=== PATIENT | female | born 1955 | race Native Hawaiian/Other Pacific Islander ===

== ENCOUNTER 2018-06-07 16:16 | Outpatient (CLI) | payer BC ==
[2018-06-07 16:37] LABS: PLATELET COUNT 316 K/uL (152-353)
[2018-06-07 16:52] LABS: POTASSIUM 3.8 mmol/L (3.6-5.2)
== END 2018-06-07 20:30 | disposition home or self-care (01) ==
LOC: LABW 16:16
PROVIDERS: Plastic Surgery
DX: Z01.812 Encounter for preprocedural laboratory examination (principal)
CPT/HCPCS: 36415; 80053; 85027

== ENCOUNTER 2021-11-12 09:24 | Outpatient (CLI) | payer OTHER ==
[2021-11-12 09:51] LABS: PLATELET COUNT 335 K/uL (152-353)
[2021-11-12 10:01] LABS: POTASSIUM 3.7 mmol/L (3.6-5.2)
== END 2021-11-12 18:48 | disposition home or self-care (01) ==
LOC: LABW 09:24
PROVIDERS: ATTEND Nurse Practitioner Family
DX: M06.09 Rheumatoid arthritis without rheumatoid factor, multiple sites (principal)
CPT/HCPCS: 36415; 80053; 85027; 85652; 86140; 86480

== ENCOUNTER 2022-02-07 10:01 | Outpatient (CLI) | payer OTHER ==
[2022-02-07 10:27] LABS: PLATELET COUNT 344 K/uL (152-353)
[2022-02-07 10:58] LABS: POTASSIUM 3.9 mmol/L (3.6-5.2)
== END 2022-02-07 19:18 | disposition home or self-care (01) ==
LOC: LABW 10:01
PROVIDERS: ATTEND Nurse Practitioner Family
DX: M06.09 Rheumatoid arthritis without rheumatoid factor, multiple sites (principal); I10 Essential (primary) hypertension; Z78.0 Asymptomatic menopausal state; E78.49 Other hyperlipidemia; Z79.899 Other long term (current) drug therapy; E28.39 Other primary ovarian failure; M25.551 Pain in right hip
CPT/HCPCS: 36415; 80053; 80061; 82306; 84436; 84443; 85027; 85652; 86140

== ENCOUNTER 2022-05-05 13:32 | Outpatient (CLI) | payer OTHER | END 2022-05-05 19:01 | disposition home or self-care (01) | LOC: RAD 13:32 | PROVIDERS: ATTEND Internal Medicine | DX: R05.3 Chronic cough (principal); R50.9 Fever, unspecified ==

== ENCOUNTER 2022-05-09 08:26 | Outpatient (CLI) | payer OTHER ==
[2022-05-09 08:53] LABS: POTASSIUM 3.6 mmol/L (3.6-5.2)
[2022-05-09 09:04] LABS: PLATELET COUNT 339 K/uL (152-353)
== END 2022-05-09 22:48 | disposition home or self-care (01) ==
LOC: LABW 08:26
PROVIDERS: ATTEND Internal Medicine Rheumatology
DX: M06.09 Rheumatoid arthritis without rheumatoid factor, multiple sites (principal)
CPT/HCPCS: 36415; 80053; 85027; 85652

== ENCOUNTER 2022-08-19 08:01 | Outpatient (CLI) | payer OTHER ==
[2022-08-19 08:17] LABS: PLATELET COUNT 356 K/uL (152-353)
[2022-08-19 08:33] LABS: POTASSIUM 3.9 mmol/L (3.6-5.2)
== END 2022-08-19 18:55 | disposition home or self-care (01) ==
LOC: LABW 08:01
PROVIDERS: ATTEND Nurse Practitioner Family
DX: M06.09 Rheumatoid arthritis without rheumatoid factor, multiple sites (principal)
CPT/HCPCS: 36415; 80053; 85027; 85652; 86140

== ENCOUNTER 2022-10-20 14:23 | Outpatient (CLI) | payer OTHER | END 2022-10-20 21:35 | disposition home or self-care (01) | LOC: RAD 14:23 | PROVIDERS: ATTEND Internal Medicine | DX: R05.3 Chronic cough (principal) ==

== ENCOUNTER 2022-11-12 08:37 | Outpatient (CLI) | payer OTHER ==
[2022-11-12 08:52] LABS: PLATELET COUNT 328 K/uL (152-353)
[2022-11-12 09:04] LABS: POTASSIUM 3.9 mmol/L (3.6-5.2)
== END 2022-11-12 18:58 | disposition home or self-care (01) ==
LOC: LABW 08:37
PROVIDERS: ATTEND Nurse Practitioner Family
DX: M06.09 Rheumatoid arthritis without rheumatoid factor, multiple sites (principal); Z79.899 Other long term (current) drug therapy
CPT/HCPCS: 36415; 80053; 85027; 85652; 86140

== ENCOUNTER 2022-12-17 08:02 | Outpatient (CLI) | payer OTHER ==
[2022-12-17 08:31] LABS: POTASSIUM 3.8 mmol/L (3.6-5.2)
== END 2022-12-17 19:07 | disposition home or self-care (01) ==
LOC: LABW 08:02
PROVIDERS: ATTEND Nurse Practitioner Family
DX: Z79.899 Other long term (current) drug therapy (principal)
CPT/HCPCS: 36415; 80053